=== PATIENT | male | born 1935 | race Caucasian/White ===

== ENCOUNTER 2019-05-26 14:04 | Emergency (ER) | payer MEDICARE, BC ==
[2019-05-26 14:17] VITALS: BP 122/73
--- NOTE | 2019-05-26 14:44 | UC ---
Eye Complaint HPI - HPI Summary HPI Summary: 83-year-old male comes in with a chief complaint of right eye injury. This morning he leaned down and struck his right eye on the corner of some furniture. He is on Xarelto. The sclera has become red. Denies any change in vision. Pain is mild. Denies any other injuries. He does not work contacts. - History of Current Complaint Chief Complaint: UCEye Stated Complaint: EYE INJURY Time Seen by Provider: 05/26/19 14:27 Pain Intensity: 0 - Allergies/Home Medications Allergies/Adverse Reactions: Allergies Allergy/AdvReac Type Severity Reaction Status Date / Time No Known Allergies Allergy Verified 05/26/19 14:17 Home Medications: Home Medications Digoxin [Digitek] 0.125 mg PO DAILY 05/26/19 [History Confirmed 05/26/19] Metoprolol Tartrate TAB* [Lopressor TAB*] 37.5 mg PO DAILY 05/26/19 [History Confirmed 05/26/19] Rivaroxaban TAB(*) [Xarelto 20 mg] 20 mg PO DAILY 05/26/19 [History Confirmed ] Tadalafil [Cialis] 5 mg PO DAILY 05/26/19 [History Confirmed 05/26/19] PMH/Surg Hx/FS Hx/Imm Hx Previously Healthy: Yes - ON XARELTO Cardiovascular History: Hypertension, Atrial Fibrillation - Surgical History Surgical History: Yes Surgery Procedure, Year, and Place: skin cancer removal - Family History Known Family History: Positive: Non-Contributory - Social History Alcohol Use: None Substance Use Type: None Smoking Status (MU): Never Smoked Tobacco Review of Systems All Other Systems Reviewed And Are Negative: Yes Constitutional: Positive: Negative Skin: Positive: Negative Eyes: Positive: Other - SEE HPI ENT: Positive: Negative Respiratory: Positive: Negative Cardiovascular: Positive: Negative Gastrointestinal: Positive: Negative Motor: Positive: Negative Neurovascular: Positive: Negative Musculoskeletal: Positive: Negative Neurological: Positive: Negative Psychological: Positive: Negative Is Patient Immunocompromised?: No Physical Exam Triage Information Reviewed: Yes Appearance: Well-Appearing, No Pain Distress, Well-Nourished Vital Signs: Initial Vital Signs Temp 98.2 F 05/26/19 14:11 Pulse 83 05/26/19 14:11 Resp 15 05/26/19 14:11 BP 122/73 05/26/19 14:11 Pulse Ox 95 05/26/19 14:11 Vital Signs Reviewed: Yes Eyes: Positive: Other: - PERRLA/EOMI, no hyphema. There is a some conjunctival hemorrhage with the darkest area being in the medial inferior portion it's spreads laterally in the lower eye and then vertically in the medial sclera. Pupils are equal on exam. I'm able see the retina. No photophobia. Neck: Positive: Supple Respiratory: Positive: No respiratory distress Musculoskeletal: Positive: Strength Intact, ROM Intact Neurological: Positive: Alert Psychological: Positive: Normal Response To Family, Age Appropriate Behavior Skin Exam: Normal Eye Complaint Course/Dx - Course Course Of Treatment: I called to the title insurance agent [facility] and they can see him now so the patient was discharged and sent directly to ophthalmology. Families giving him a ride. - Differential Dx/Diagnosis Provider Diagnosis: Subconjunctival hemorrhage of right eye Discharge - Sign-Out/Discharge Documenting (check all that apply): Patient Departure All imaging exams completed and their final reports reviewed: No Studies - Discharge Plan Condition: Stable Disposition: HOME Patient Education Materials: Subconjunctival Hemorrhage (ED) Referrals: Femi Atkins [Primary Care Provider] - [facility] [Provider Group] Additional Instructions: GO DIRECTLY TO [facility] [place] EVALUATION. - Billing Disposition and Condition Condition: STABLE Disposition: Home
== END 2019-05-26 14:47 | disposition home or self-care (01) ==
LOC: UCEAST 14:04
DX: H11.31 Conjunctival hemorrhage, right eye (principal); I10 Essential (primary) hypertension; I48.91 Unspecified atrial fibrillation; Z79.01 Long term (current) use of anticoagulants
CPT/HCPCS: 99211; G0463

== ENCOUNTER 2020-06-11 15:51 | Inpatient (IN) ==
[2020-06-11 18:02] LABS: ABS Eosinophils 0.1 10^3/ul (0-0.6); ABS Lymphocytes 0.7 10^3/ul (1.0-4.8); ABS Monocytes 0.7 10^3/ul (0-0.8); ABS Neutrophils 6.8 10^3/ul (1.5-7.7); Eosinophil % 1.2 %; Hematocrit 36 % (42-52); Hemoglobin 12.2 g/dL (14.0-18.0); Lymphocyte % 8.5 %; Mean Corpuscular HGB Conc 34 g/dL (31-36); Mean Corpuscular Hemoglobin 31 pg (27-31); Mean Corpuscular Volume 92 fL (80-94); Mean Platelet Volume 7.7 fL (7.4-10.4); Platelet Count 261 10^3/uL (150-450); Red Blood Count 3.91 10^6 /uL (4.18-5.48); Red Cell Distribution Width 18 % (10-15); White Blood Count 8.3 10^3/uL (3.5-10.8)
[2020-06-11 18:18] LABS: Albumin 3.4 g/dL (3.2-5.2); BUN/Creatinine Ratio 26.7 (8-20); EGFR African American 119.8 (>60); Globulin 3.5 g/dL (2-4); Potassium 3.9 mmol/L (3.5-5.0); Total Bilirubin 0.9 mg/dL (0.2-1.0); Total Protein 6.9 g/dL (6.4-8.9)
[2020-06-11] MEDS ORDERED: Ondansetron 4 mg VIAL 2 MG/ML 2 ml VIAL IV PRN (20:42)
[2020-06-11 23:09] LABS: INR 1.48 (0.82-1.09)
[2020-06-12 00:41] LABS: Urine Appearance Turbid; Urine Bilirubin Negative (Negative); Urine Blood 1+ (Negative); Urine Color Yellow; Urine Glucose Negative (Negative); Urine Ketones 1+ (Negative); Urine Nitrite Negative (Negative); Urine Protein 2+(100 mg/dL) (Negative); Urine Specific Gravity 1.021 (1.010-1.030); Urine Urobilinogen Negative (Negative)
[2020-06-12 00:51] LABS: Urine Bacteria 1+ (Absent); Urine Red Blood Cell 3+(>10/hpf) (Absent); Urine Squamous Epithelial Cell Present (Absent); Urine White Blood Cell 3+(>20/hpf) (Absent)
[2020-06-12] MEDS: cefTRIAXone 1 gm/50 mL NS BAG 1 GM/50 ML BAG IVPB SCH (01:59)
[2020-06-12 05:58] LABS: ABS Eosinophils 0.1 10^3/ul (0-0.6); ABS Lymphocytes 0.7 10^3/ul (1.0-4.8); ABS Monocytes 0.5 10^3/ul (0-0.8); ABS Neutrophils 4.3 10^3/ul (1.5-7.7); Eosinophil % 1.1 %; Hematocrit 33 % (42-52); Hemoglobin 11.5 g/dL (14.0-18.0); Lymphocyte % 12.1 %; Mean Corpuscular HGB Conc 35 g/dL (31-36); Mean Corpuscular Hemoglobin 32 pg (27-31); Mean Corpuscular Volume 91 fL (80-94); Mean Platelet Volume 7.6 fL (7.4-10.4); Nucleated Red Blood Cells % 0.1; Platelet Count 256 10^3/uL (150-450); Red Blood Count 3.65 10^6 /uL (4.18-5.48); Red Cell Distribution Width 18 % (10-15); White Blood Count 5.6 10^3/uL (3.5-10.8)
[2020-06-12 06:01] LABS: INR 1.48 (0.82-1.09)
[2020-06-12 06:12] LABS: BUN/Creatinine Ratio 23.3 (8-20); Calcium 8.6 mg/dL (8.6-10.3); EGFR African American 123.6 (>60); EGFR Non-African American 102.1 (>60); Potassium 3.9 mmol/L (3.5-5.0)
[2020-06-12 06:17] LABS: Digoxin 0.4 ng/ml (0.8-2.0)
[2020-06-12] MEDS ORDERED: Perflutren Lipid Microsphere 3 ML VIAL ONE (08:14)
[2020-06-12] MEDS ORDERED: TADALAFIL 5 MG PO SCH (17:00)
[2020-06-13] MEDS: cefTRIAXone 1 gm/50 mL NS BAG 1 GM/50 ML BAG IVPB SCH (02:01)
[2020-06-13] MEDS: tadalafiL 5 MG TABLET (NF) PO SCH (18:01)
[2020-06-13] MEDS: Polyethylene Glycol 3350 17 GM PACKET PO SCH (20:28)
[2020-06-13] MEDS: SACUBITRIL PO SCH (20:31)
[2020-06-13] MEDS: VALSARTAN PO SCH (20:31)
[2020-06-14] MEDS: cefTRIAXone 1 gm/50 mL NS BAG 1 GM/50 ML BAG IVPB SCH ×2 (03:52→05:18)
[2020-06-14] MEDS ORDERED: Morphine 2 MG/ML SYRINGE IV ONE (05:00)
[2020-06-14] MEDS: Polyethylene Glycol 3350 17 GM PACKET PO SCH ×2 (08:46→21:37)
[2020-06-14] MEDS: SACUBITRIL PO SCH ×2 (08:46→21:41)
[2020-06-14] MEDS: VALSARTAN PO SCH ×2 (08:46→21:41)
[2020-06-14] MEDS: tadalafiL 5 MG TABLET (NF) PO SCH (16:28)
[2020-06-15] MEDS: cefTRIAXone 1 gm/50 mL NS BAG 1 GM/50 ML BAG IVPB SCH (05:25)
[2020-06-15] MEDS: Polyethylene Glycol 3350 17 GM PACKET PO SCH ×3 (08:07→22:47)
[2020-06-15] MEDS: VALSARTAN PO SCH ×3 (09:59→22:47)
[2020-06-15] MEDS: SACUBITRIL PO SCH ×3 (09:59→22:47)
[2020-06-15] MEDS: tadalafiL 5 MG TABLET (NF) PO SCH (15:56)
[2020-06-16] MEDS: Polyethylene Glycol 3350 17 GM PACKET PO SCH (08:07)
[2020-06-16] MEDS: SACUBITRIL PO SCH (09:40)
[2020-06-16] MEDS: VALSARTAN PO SCH (09:40)
[2020-06-16 11:51] VITALS: BP 115/60
== END 2020-06-16 12:11 | DRG 560 ==
LOC: ED 15:51 → SSU 20:31
PROVIDERS: ADMIT Internal Medicine; ATTEND Internal Medicine